=== PATIENT | male | born 2000 | race Caucasian/White ===

== ENCOUNTER 2018-06-24 22:17 | Emergency (ER) | payer BC ==
[~2018-06-24] VITALS: Ht 190.5 cm; Wt 104.3 kg
[2018-06-24] MEDS ORDERED: TIZA4TAB PO (22:40)
[2018-06-24] MEDS ORDERED: RANI150C PO (22:40)
[2018-06-24] MEDS ORDERED: ALPR2TAB2 PO (22:40)
[2018-06-24] MEDS ORDERED: CHOL2000 PO (22:40)
[2018-06-24] MEDS ORDERED: OMEP40CA5 PO (22:40)
--- NOTE | 2018-06-24 22:50 | PHYS DOC ---
Past Medical History Past Medical History: Anxiety Additional Past Medical Histor: PTSD Additional Past Surgical Histo: Fundal GI\surgery Alcohol Use: Occasionally Drug Use: Marijuana Adult General Chief Complaint Chief Complaint: ABDOMINAL PAIN HPI HPI Patient is a 18 year old M who is brought to ER peter by his mother for epigastric pain. Per pt he had his gallbladder removed in Mar of this year by Dr. Rea at [facility]. Shortly after surgery he started having this midline epigastric pain. He was re-admitted for concerns for a leak and had CT which did not show a leak and they were unsure what was causing all the discomfort. Since that time he has had intermittent pains that will last a few minutes and then let up. Tonight he states the pain came on and has not wanted to go away. He arrives moaning and rocking back and forth. Pt denied N/V but then during my exam sat up suddenly and asked for a bucket. He reports normal stools (loose since surgery). Pt does not feel eating brings on the pain. He states it just happens randomly. Review of Systems Review of Systems Constitutional: Denies fever or chills Respiratory: Denies cough or shortness of breath Cardiovascular: Denies chest pain GI: Reports abdominal/epigastric pain. Denies constipation, nausea or vomiting. Reports loose stools. : Denies dysuria or hematuria Musculoskeletal: Reports mid back pain. Integument: Denies rash or skin lesions Neurologic: Denies headache, focal weakness or sensory changes All other systems were reviewed and found to be within normal limits, except as documented in this note. Current Medications Current Medications Current Medications Medications (Trade) Dose Ordered Sig/Ugo Start Time Stop Time Status Last Admin Dose Admin Diphenhydramine HCl (Benadryl) 25 mg 1X ONCE 06/24/18 23:00 06/24/18 23:01 DC 06/24/18 23:22 25 MG Fentanyl Citrate (Fentanyl 2ml Vial) 50 mcg 1X ONCE 06/24/18 23:00 06/24/18 23:01 DC 06/24/18 23:23 50 MCG Metoclopramide HCl (Reglan Vial) 10 mg 1X ONCE 06/24/18 23:00 06/24/18 23:01 DC 06/24/18 23:21 10 MG Allergies Allergies Allergies Coded Allergies Type Severity Reaction Last Updated Verified No Known Drug Allergies 06/24/18 No Physical Exam Physical Exam Constitutional: Well developed, well nourished, non-toxic appearance. Appears uncomfortable. HENT: Normocephalic, atraumatic, oropharynx moist Eyes: PERRLA, EOMI Neck: Normal range of motion, no tenderness, supple, no stridor. Cardiovascular:Heart rate regular rhythm, no murmur Lungs & Thorax: Bilateral breath sounds clear to auscultation Abdomen: Bowel sounds normal, soft, no masses, no pulsatile masses. Epigastric pain with palpation. Skin: Warm, dry, no erythema, no rash. Back: No tenderness with palpation, no CVA tenderness. Extremities: No tenderness, no cyanosis, no clubbing, ROM intact, no edema. Neurologic: Alert and oriented X 3, normal motor function, normal sensory function, no focal deficits noted. Psychologic: Affect normal, judgement normal, mood normal. Current Patient Data Vital Signs Vital Signs Date Time Temp Pulse Resp B/P (MAP) Pulse Ox O2 Delivery O2 Flow Rate FiO2 06/25/18 00:05 70 16 97/54 (68) 94 Room Air 06/24/18 22:23 98.5 98.5 Lab Values Laboratory Tests Test 06/24/18 23:00 White Blood Count 6.0 x10^3/uL (4.0-11.0) Red Blood Count 5.49 x10^6/uL (4.30-5.70) Hemoglobin 15.1 g/dL (13.0-17.5) Hematocrit 44.3 % (39.0-53.0) Mean Corpuscular Volume 81 fL (79-100) Mean Corpuscular Hemoglobin 28 pg (25-35) Mean Corpuscular Hemoglobin Concent 34 g/dL (31-37) Red Cell Distribution Width 14.2 % (11.5-14.5) Platelet Count 221 x10^3/uL (140-400) Neutrophils (%) (Auto) 48 % (31-73) Lymphocytes (%) (Auto) 38 % (24-48) Monocytes (%) (Auto) 11 % (0-9) H Eosinophils (%) (Auto) 2 % (0-3) Basophils (%) (Auto) 1 % (0-3) Neutrophils # (Auto) 2.9 x10^3uL (1.8-7.7) Lymphocytes # (Auto) 2.3 x10^3/uL (1.0-4.8) Monocytes # (Auto) 0.7 x10^3/uL (0.0-1.1) Eosinophils # (Auto) 0.1 x10^3/uL (0.0-0.7) Basophils # (Auto) 0.1 x10^3/uL (0.0-0.2) Sodium Level 141 mmol/L (136-145) Potassium Level 3.6 mmol/L (3.5-5.1) Chloride Level 105 mmol/L (98-107) Carbon Dioxide Level 23 mmol/L (21-32) Anion Gap 13 (6-14) Blood Urea Nitrogen 12 mg/dL (8-26) Creatinine 1.2 mg/dL (0.7-1.3) Estimated GFR (Cockcroft-Gault) 77.2 BUN/Creatinine Ratio 10 (6-20) Glucose Level 92 mg/dL (70-99) Calcium Level 9.1 mg/dL (8.5-10.1) Total Bilirubin 1.1 mg/dL (0.2-1.0) H Aspartate Amino Transferase (AST) 41 U/L (15-37) H Alanine Aminotransferase (ALT) 35 U/L (16-63) Alkaline Phosphatase 89 U/L (46-116) Total Protein 7.4 g/dL (6.4-8.2) Albumin 3.9 g/dL (3.4-5.0) Albumin/Globulin Ratio 1.1 (1.0-1.7) Lipase 89 U/L (73-393) Laboratory Tests 06/24/18 23:00 Laboratory Tests 06/24/18 23:00 EKG EKG [] Radiology/Procedures Radiology/Procedures Ultrasound over read pending. Reports of normal sized CBD and no stones. Course & Med Decision Making Course & Med Decision Making Pertinent Labs and Imaging studies reviewed. (See chart for details) Pain greatly improved after pain medication. Ultrasound reassuring. Labs mostly normal with mild elevation of Bili and AST. Discussed with pt and mother that he should follow up closely with his surgeon and/or PCP. Pt to return if symptoms worsen at anytime. Dragon Disclaimer Dragon Disclaimer This electronic medical record was generated, in whole or in part, using a voice recognition dictation system. Departure Departure Impression: Primary Impression: Epigastric pain Disposition: HOME, SELF-CARE Condition: IMPROVED Patient Instructions: Abdominal Pain Additional Instructions: Your tests today were reassuring. They did not show any emergent conditions, but the cause of your pain is unclear. We recommend a very close follow up with your PCP or your surgeon. Call first thing tomorrow morning and return to ER if symptoms worsen at anytime. Scripts Ondansetron Hcl (ZOFRAN) 4 Mg Tablet 1 TAB PO Q6HRS PRN for NAUSEA/VOMITING, #12 TAB Prov: ANETTE RODRIGUEZ 06/25/18 Famotidine (PEPCID) 20 Mg Tablet 20 MG PO HS for 7 Days, #7 TAB Prov: ANETTE RODRIGUEZ 06/25/18 Hydrocodone/Apap 5-325 (NORCO 5-325 TABLET) 1 Each Tablet 1-2 TAB PO Q4-6HRS PRN for PAIN, #12 TAB Prov: ANETTE RODRIGUEZ 06/25/18 ANETTE RODRIGUEZ June 24, 2018 22:50
[2018-06-24] MEDS ORDERED: METOCLOPRAMIDE HCL 10 MG/2 ML VIAL. IV ONE (23:00)
[2018-06-24] MEDS ORDERED: diphenhydrAMINE 50 MG/ML VIAL IVP ONE (23:00)
[2018-06-24] MEDS ORDERED: fentaNYL PF VIAL 100 MCG/2 ML VIAL IV ONE (23:00)
[2018-06-24 23:10] LABS: BASO # 0.1 x10^3/uL (0.0-0.2); BASO % 1 % (0-3); EOS # 0.1 x10^3/uL (0.0-0.7); EOS % 2 % (0-3); HEMATOCRIT 44.3 % (39.0-53.0); HEMOGLOBIN 15.1 g/dL (13.0-17.5); LYMPH # 2.3 x10^3/uL (1.0-4.8); LYMPH % 38 % (24-48); MEAN CORPUSCULAR HEMOGLOBIN 28 pg (25-35); MEAN CORPUSCULAR HGB CONC 34 g/dL (31-37); MEAN CORPUSCULAR VOLUME 81 fL (79-100); MONO # 0.7 x10^3/uL (0.0-1.1); MONO % 11 % (0-9); NEUT # 2.9 x10^3uL (1.8-7.7); NEUT % 48 % (31-73); PLATELET COUNT 221 x10^3/uL (140-400); RED BLOOD COUNT 5.49 x10^6/uL (4.30-5.70); RED CELL DISTRIBUTION WIDTH 14.2 % (11.5-14.5)
[2018-06-24 23:18] LABS: CALCIUM 9.1 mg/dL (8.5-10.1); CREATININE 1.2 mg/dL (0.7-1.3); GFR 77.2; POTASSIUM 3.6 mmol/L (3.5-5.1)
[2018-06-24 23:26] LABS: ALBUMIN 3.9 g/dL (3.4-5.0); ALBUMIN/GLOBULIN RATIO 1.1 (1.0-1.7); TOTAL BILIRUBIN 1.1 mg/dL (0.2-1.0); TOTAL PROTEIN 7.4 g/dL (6.4-8.2)
[2018-06-25] MEDS ORDERED: FAMO-63 PO (00:31)
[2018-06-25] MEDS ORDERED: HYDR-3164 PO (00:31)
[2018-06-25] MEDS ORDERED: ONDA4TAB7 PO (00:31)
[2018-06-25] MEDS ORDERED: IV NORMAL SALINE 1000ML BAG 1,000 ML IV ONE (00:45)
[2018-06-25 01:22] VITALS: BP 100/54
--- NOTE | 2018-06-25 09:50 | RAD ---
Ultrasound the abdomen limited. HISTORY: Epigastric pain, prior cholecystectomy Ultrasound was used to evaluate the right upper quadrant of the abdomen. The head and proximal body of the pancreas appeared normal. The tail of pancreas is obscured. Liver is difficult to fully evaluate. A liver lesion was not identified. Common duct was normal measuring 5 mm. Right kidney is 10.1 cm in length without hydronephrosis. IMPRESSION: 1. Previous cholecystectomy. 2. Difficult evaluation due to bowel gas. 3. Normal common duct. Electronically signed by: Silvino Dos Santos MD (06/25/2018 12:40 AM) [id number]
== END 2018-06-25 01:23 | disposition home or self-care (01) ==
LOC: ER 22:17
DX: R10.13 Epigastric pain (principal); M54.6 Pain in thoracic spine; R19.7 Diarrhea, unspecified; F41.9 Anxiety disorder, unspecified
CPT/HCPCS: 36415; 76705; 80053; 83690; 85025; 96361; 96374; 96375; 99285; J1200; J2765; J3010; J7030

== ENCOUNTER 2018-06-29 16:08 | Emergency (ER) | payer BC ==
[~2018-06-29] VITALS: Ht 188 cm; Wt 99.8 kg
[~2018-06-29 16:08] MED LIST: ALPR2TAB2 PO; CHOL2000 PO; FAMO-63 PO; HYDR-3164 PO; OMEP40CA5 PO; ONDA4TAB7 PO; RANI150C PO; TIZA4TAB PO
[2018-06-29] MEDS ORDERED: IV NORMAL SALINE 1000ML BAG 1,000 ML IV SCH (16:24)
[2018-06-29] MEDS ORDERED: ONDANSETRON PF 4 MG/2 ML VIAL. IV ONE (16:30)
[2018-06-29] MEDS ORDERED: MORPHINE SULFATE 4 MG/ML VIAL. IV ONE (16:30)
--- NOTE | 2018-06-29 16:37 | PHYS DOC ---
Past Medical History Past Medical History: Anxiety Additional Past Medical Histor: PTSD Past Surgical History: Cholecystectomy Additional Past Surgical Histo: Fundal GI\surgery Additional Information: non smoker Alcohol Use: None Drug Use: None Adult General Chief Complaint Chief Complaint: ABDOMINAL PAIN HPI HPI Patient is a 18 year old male who presents with abdominal pain. He states he had his gallbladder taken out on March 28. Since that times he has been having abdominal pain in increasing severity. He states that he has spasms daily that have been increasing in quantity and severity. It started out after the surgery with 5-6 per day and now is 40-50 per days. Some are lasting up to 1 hour in length. Rates his pain as 7/10 and describes it as punching in the gut. Associated symptoms include nausea and vomiting. Has tried Tiazidine and Naproxen today. Also has had 3 Xanax. Review of Systems Review of Systems Constitutional: Denies fever or chills [] Eyes: Denies change in visual acuity, redness, or eye pain [] HENT: Denies nasal congestion or sore throat [] Respiratory: Denies cough or shortness of breath [] Cardiovascular: No additional information not addressed in HPI [] GI: Reports abdominal pain, nausea, vomiting, diarrhea (ongoing since surgery) Denies bloody stools. [] : Denies dysuria or hematuria [] Musculoskeletal: Denies back pain or joint pain [] Integument: Denies rash or skin lesions [] Neurologic: Denies headache, focal weakness or sensory changes [] Endocrine: Denies polyuria or polydipsia [] Complete systems were reviewed and found to be within normal limits, except as documented in this note. Current Medications Current Medications Current Medications Medications (Trade) Dose Ordered Sig/Ugo Start Time Stop Time Status Last Admin Dose Admin Dicyclomine HCl (Bentyl) 10 mg 1X ONCE 06/29/18 17:15 06/29/18 17:16 DC 06/29/18 17:05 10 MG Diphenhydramine HCl (Benadryl) 25 mg 1X ONCE 06/29/18 18:00 06/29/18 18:01 DC 06/29/18 17:51 25 MG Fentanyl Citrate (Fentanyl 2ml Vial) 75 mcg 1X ONCE 06/29/18 18:00 06/29/18 18:01 DC 06/29/18 17:51 75 MCG Info (CONTRAST GIVEN -- Rx MONITORING) 1 each PRN DAILY PRN 06/29/18 17:00 07/01/18 16:59 Iohexol (Omnipaque 300 Mg/ml) 75 ml 1X ONCE 06/29/18 17:00 06/29/18 17:01 DC 06/29/18 17:30 75 ML Morphine Sulfate (Morphine Sulfate) 4 mg 1X ONCE 06/29/18 16:30 06/29/18 16:31 DC 06/29/18 16:37 4 MG Ondansetron HCl (Zofran) 4 mg 1X ONCE 06/29/18 16:30 06/29/18 16:31 DC 06/29/18 16:38 4 MG Sodium Chloride 1,000 ml @ 1,000 mls/hr Q1H 06/29/18 16:24 06/29/18 17:23 DC 06/29/18 16:38 1,000 MLS/HR Allergies Allergies Allergies Coded Allergies Type Severity Reaction Last Updated Verified No Known Drug Allergies 06/24/18 No Physical Exam Physical Exam Constitutional: Well developed, well nourished, no acute distress, non-toxic appearance. [] HENT: Normocephalic, atraumatic, bilateral external ears normal, oropharynx mo ist, no oral exudates, nose normal. [] Eyes: PERRLA, EOMI, conjunctiva normal, no discharge. [] Neck: Normal range of motion, no tenderness, supple, no stridor. [] Cardiovascular:Heart rate regular rhythm, no murmur [] Lungs & Thorax: Bilateral breath sounds clear to auscultation [] Abdomen: Bowel sounds normal, soft, diffuse tenderness, no masses, no pulsatile masses. [] Skin: Warm, dry, no erythema, no rash. [] Back: No tenderness, no CVA tenderness. [] Extremities: No tenderness, no cyanosis, no clubbing, ROM intact, no edema. [] Neurologic: Alert and oriented X 3, normal motor function, normal sensory function, no focal deficits noted. [] Psychologic: Affect anxious, judgement normal Current Patient Data Vital Signs Vital Signs Date Time Temp Pulse Resp B/P (MAP) Pulse Ox O2 Delivery O2 Flow Rate FiO2 06/29/18 18:00 66 18 121/77 (92) 96 Room Air 5/25/19 16:16 98.6 98.6 Lab Values Laboratory Tests Test 06/29/18 16:20 06/29/18 17:45 White Blood Count 5.5 x10^3/uL (4.0-11.0) Red Blood Count 5.63 x10^6/uL (4.30-5.70) Hemoglobin 15.7 g/dL (13.0-17.5) Hematocrit 45.9 % (39.0-53.0) Mean Corpuscular Volume 82 fL (79-100) Mean Corpuscular Hemoglobin 28 pg (25-35) Mean Corpuscular Hemoglobin Concent 34 g/dL (31-37) Red Cell Distribution Width 14.5 % (11.5-14.5) Platelet Count 222 x10^3/uL (140-400) Neutrophils (%) (Auto) 53 % (31-73) Lymphocytes (%) (Auto) 36 % (24-48) Monocytes (%) (Auto) 9 % (0-9) Eosinophils (%) (Auto) 2 % (0-3) Basophils (%) (Auto) 1 % (0-3) Neutrophils # (Auto) 2.9 x10^3uL (1.8-7.7) Lymphocytes # (Auto) 2.0 x10^3/uL (1.0-4.8) Monocytes # (Auto) 0.5 x10^3/uL (0.0-1.1) Eosinophils # (Auto) 0.1 x10^3/uL (0.0-0.7) Basophils # (Auto) 0.1 x10^3/uL (0.0-0.2) Sodium Level 141 mmol/L (136-145) Potassium Level 3.8 mmol/L (3.5-5.1) Chloride Level 105 mmol/L (98-107) Carbon Dioxide Level 26 mmol/L (21-32) Anion Gap 10 (6-14) Blood Urea Nitrogen 11 mg/dL (8-26) Creatinine 1.1 mg/dL (0.7-1.3) Estimated GFR (Cockcroft-Gault) 85.3 BUN/Creatinine Ratio 10 (6-20) Glucose Level 95 mg/dL (70-99) Calcium Level 9.1 mg/dL (8.5-10.1) Total Bilirubin 0.6 mg/dL (0.2-1.0) Aspartate Amino Transferase (AST) 24 U/L (15-37) Alanine Aminotransferase (ALT) 32 U/L (16-63) Alkaline Phosphatase 99 U/L (46-116) Total Protein 7.7 g/dL (6.4-8.2) Albumin 4.3 g/dL (3.4-5.0) Albumin/Globulin Ratio 1.3 (1.0-1.7) Lipase 91 U/L (73-393) Urine Collection Type Unknown Urine Color Yellow Urine Clarity Clear Urine pH 7.0 Urine Specific [place] 1.010 Urine Protein Negative mg/dL (NEG-TRACE) Urine Glucose (UA) Negative mg/dL (NEG) Urine Ketones (Stick) Negative mg/dL (NEG) Urine Blood Negative (NEG) Urine Nitrite Negative (NEG) Urine Bilirubin Negative (NEG) Urine Urobilinogen Dipstick 0.2 mg/dL (0.2 mg/dL) Urine Leukocyte Esterase Negative (NEG) Urine RBC Occ /HPF (0-2) Urine WBC 0 /HPF (0-4) Urine Bacteria 0 /HPF (0-FEW) Laboratory Tests 06/29/18 16:20 Laboratory Tests 06/29/18 16:20 EKG EKG [] Radiology/Procedures Radiology/Procedures []PATIENT: BERENICE COOPEROUNT: [id number]#: [id number] : 2000 LOCATION: ER AGE: 18 SEX: M EXAM STATUS: REG ER ORD. PHYSICIAN: SILVIA LEZAMA APRN REASON: abd pain PROCEDURE: CT ABD PELV W/ IV CONTRST ONLY CT scan abdomen and pelvis with contrast 06/29/2018 CLINICAL HISTORY: Abdominal pain. TECHNIQUE: After the intravenous administration of 75 cc of Omnipaque 300, contiguous, 5 mm axial sections were obtained through the abdomen and pelvis. One or more of the following individualized dose reduction techniques were utilized for this study: 1. Automated exposure control. 2. Adjustment of the mA and/or kV according to patient size. 3. Use of iterative reconstruction technique. FINDINGS: Comparison is made to a CT scan of the abdomen and pelvis dated 04/10/2018. This performed at [facility]. Images through the lung bases demonstrate minimal dependent subsegmental atelectasis bilaterally. The liver, spleen, pancreas, adrenal glands and kidneys are within normal limits. The abdominal aorta tapers normally. The gallbladder is not visualized consistent with a cholecystectomy. No free fluid or free air is seen within the abdomen. There is no evidence of bowel obstruction. The appendix is well-visualized and is within normal limits. Images through the pelvis demonstrate the urinary bladder distended with urine. No free fluid is seen. Minimal S-shaped curvature of the thoracolumbar spine is noted. IMPRESSION: No acute abnormality is seen. Electronically signed by: Singh Conklin MD (06/29/2018 5:41 PM) [facility] Course & Med Decision Making Course & Med Decision Making Pertinent Labs and Imaging studies reviewed. (See chart for details) Will order labs, CT scan, and supportive medication. Patient is agreeable. Imaging and labs are unremarkable. Will d/c to follow up with general surgery. Dragon Disclaimer Dragon Disclaimer This electronic medical record was generated, in whole or in part, using a voice recognition dictation system. Departure Departure Impression: Primary Impression: Abdominal pain Disposition: 01 HOME, SELF-CARE Condition: STABLE Referrals: NO PCP (PCP) Patient Instructions: Abdominal Pain (Nonspecific) Additional Instructions: Please follow up with general surgery this coming week for further workup. Return to ER if symptoms worsen. Problem Qualifiers Primary Impression: Abdominal pain Abdominal location: unspecified location Qualified Codes: R10.9 - Unspecified abdominal pain SILVIA LEZAMA APRN June 29, 2018 16:37
[2018-06-29 16:38] LABS: BASO # 0.1 x10^3/uL (0.0-0.2); BASO % 1 % (0-3); EOS # 0.1 x10^3/uL (0.0-0.7); EOS % 2 % (0-3); HEMATOCRIT 45.9 % (39.0-53.0); HEMOGLOBIN 15.7 g/dL (13.0-17.5); LYMPH % 36 % (24-48); MEAN CORPUSCULAR HEMOGLOBIN 28 pg (25-35); MEAN CORPUSCULAR HGB CONC 34 g/dL (31-37); MEAN CORPUSCULAR VOLUME 82 fL (79-100); MONO # 0.5 x10^3/uL (0.0-1.1); MONO % 9 % (0-9); NEUT # 2.9 x10^3uL (1.8-7.7); NEUT % 53 % (31-73); PLATELET COUNT 222 x10^3/uL (140-400); RED BLOOD COUNT 5.63 x10^6/uL (4.30-5.70); RED CELL DISTRIBUTION WIDTH 14.5 % (11.5-14.5); WHITE BLOOD COUNT 5.5 x10^3/uL (4.0-11.0)
[2018-06-29 16:47] LABS: CALCIUM 9.1 mg/dL (8.5-10.1); CREATININE 1.1 mg/dL (0.7-1.3); GFR 85.3; POTASSIUM 3.8 mmol/L (3.5-5.1)
[2018-06-29 16:52] LABS: ALBUMIN 4.3 g/dL (3.4-5.0); ALBUMIN/GLOBULIN RATIO 1.3 (1.0-1.7); TOTAL BILIRUBIN 0.6 mg/dL (0.2-1.0); TOTAL PROTEIN 7.7 g/dL (6.4-8.2)
[2018-06-29] MEDS ORDERED: CONTRAST GIVEN. MC PRN (17:00)
[2018-06-29] MEDS ORDERED: IOHEXOL 300 MG/ML 100ML VIAL. IV ONE (17:00)
[2018-06-29] MEDS ORDERED: DICYCLOMINE 20 MG/2 ML AMPUL. IM ONE (17:15)
--- NOTE | 2018-06-29 17:44 | RAD ---
CT scan abdomen and pelvis with contrast 06/29/2018 CLINICAL HISTORY: Abdominal pain. TECHNIQUE: After the intravenous administration of 75 cc of Omnipaque 300, contiguous, 5 mm axial sections were obtained through the abdomen and pelvis. One or more of the following individualized dose reduction techniques were utilized for this study: 1. Automated exposure control. 2. Adjustment of the mA and/or kV according to patient size. 3. Use of iterative reconstruction technique. FINDINGS: Comparison is made to a CT scan of the abdomen and pelvis dated 04/10/2018. This performed at [facility]. Images through the lung bases demonstrate minimal dependent subsegmental atelectasis bilaterally. The liver, spleen, pancreas, adrenal glands and kidneys are within normal limits. The abdominal aorta tapers normally. The gallbladder is not visualized consistent with a cholecystectomy. No free fluid or free air is seen within the abdomen. There is no evidence of bowel obstruction. The appendix is well-visualized and is within normal limits. Images through the pelvis demonstrate the urinary bladder distended with urine. No free fluid is seen. Minimal S-shaped curvature of the thoracolumbar spine is noted. IMPRESSION: No acute abnormality is seen. Electronically signed by: Singh Conklin MD (06/29/2018 5:41 PM) [facility]
[2018-06-29 17:53] LABS: BILIRUBIN,URINE NEGATIVE (NEG); CLARITY,URINE CLEAR; COLOR,URINE YELLOW; NITRITE,URINE NEGATIVE (NEG); PROTEIN,URINE NEGATIVE (NEG-TRACE); UROBILINOGEN,URINE 0.2 mg/dL (0.2 mg/dL)
[2018-06-29] MEDS ORDERED: fentaNYL PF VIAL 100 MCG/2 ML VIAL IV ONE ×2 (18:00→20:00)
[2018-06-29] MEDS ORDERED: diphenhydrAMINE 50 MG/ML VIAL IVP ONE (18:00)
[2018-06-29 18:13] LABS: BACTERIA,URINE 0 /HPF (0-FEW); RBC,URINE OCC /HPF (0-2); WBC,URINE 0 /HPF (0-4)
[2018-06-29 19:00] VITALS: BP 122/75
== END 2018-06-29 19:41 | disposition home or self-care (01) ==
LOC: ER 16:08
DX: R10.84 Generalized abdominal pain (principal); R11.2 Nausea with vomiting, unspecified; R19.7 Diarrhea, unspecified; F41.9 Anxiety disorder, unspecified; Z90.49 Acquired absence of other specified parts of digestive tract
CPT/HCPCS: 36415; 74177; 80053; 81001; 83690; 85025; 96361; 96372; 96374; 96375; 96376; 99285; J0500; J1200; J2270; J2405; J3010; J7030; Q9967

== ENCOUNTER 2019-01-07 09:01 | Emergency (ER) | payer BC ==
[~2019-01-07] VITALS: Ht 190.5 cm; Wt 120.2 kg
[~2019-01-07 09:01] MED LIST changes: +OMEP40CA45 PO; -OMEP40CA5 PO; -TIZA4TAB PO; +TIZA4TAB2 PO
[2019-01-07 09:05] VITALS: BP 138/79
[2019-01-07] MEDS ORDERED: ORPHENADRINE CITRATE 60 MG/2 ML VIAL. IM STA (09:13)
[2019-01-07] MEDS ORDERED: fentaNYL PF VIAL 100 MCG/2 ML VIAL IM STA (09:13)
--- NOTE | 2019-01-07 09:19 | PHYS DOC ---
Past Medical History Past Medical History: Anxiety Additional Past Medical Histor: PTSD Past Surgical History: Cholecystectomy Additional Past Surgical Histo: Fundal GI\surgery Alcohol Use: None Drug Use: None Adult General Chief Complaint Chief Complaint: MECHANICAL FALL HPI HPI Patient is a 18 year old male who presents with with a fall. The patient states on Sunday a dog leash wrapped around his ankle because in the fall and hit some stairs. He then fell again this morning when he tripped. He is having lower back pain. He rates his pain as 8 out of 10 in severity. No other complaints. Review of Systems Review of Systems Constitutional: Denies fever or chills [] Eyes: Denies change in visual acuity, redness, or eye pain [] HENT: Denies nasal congestion or sore throat [] Respiratory: Denies cough or shortness of breath [] Cardiovascular: No additional information not addressed in HPI [] GI: Denies abdominal pain, nausea, vomiting, bloody stools or diarrhea [] : Denies dysuria or hematuria [] Musculoskeletal: Reports back pain. Integument: Denies rash or skin lesions [] Neurologic: Denies headache, focal weakness or sensory changes [] Endocrine: Denies polyuria or polydipsia [] Complete systems were reviewed and found to be within normal limits, except as documented in this note. Current Medications Current Medications Current Medications Medications (Trade) Dose Ordered Sig/Ugo Start Time Stop Time Status Last Admin Dose Admin Fentanyl Citrate (Fentanyl 2ml Vial) 100 mcg 1X STAT 01/07/19 09:13 01/07/19 09:17 DC 01/07/19 09:41 100 MCG Orphenadrine Citrate (Norflex) 60 mg 1X STAT 01/07/19 09:13 01/07/19 09:17 DC 01/07/19 09:41 60 MG Allergies Allergies Allergies Coded Allergies Type Severity Reaction Last Updated Verified No Known Drug Allergies 01/07/19 No Physical Exam Physical Exam Constitutional: Well developed, well nourished, no acute distress, non-toxic appearance. [] HENT: Normocephalic, atraumatic, bilateral external ears normal, oropharynx moist, no oral exudates, nose normal. [] Eyes: PERRLA, EOMI, conjunctiva normal, no discharge. [] Neck: Normal range of motion, no tenderness, supple, no stridor. [] Abdomen: Soft, no tenderness, no masses, no pulsatile masses. [] Skin: Warm, dry, no erythema, no rash. [] Back: thoracic and lumbar tenderness. No step offs. Extremities: No tenderness, no cyanosis, no clubbing, ROM intact, no edema. [] Neurologic: Alert and oriented X 3, normal motor function, normal sensory function, no focal deficits noted. [] Psychologic: Affect normal, judgement normal, mood normal. [] Current Patient Data Vital Signs Vital Signs Date Time Temp Pulse Resp B/P (MAP) Pulse Ox O2 Delivery O2 Flow Rate FiO2 01/07/19 09:41 16 96 Room Air 01/07/19 09:05 97.7 88 138/79 (98) 97.7 EKG EKG [] Radiology/Procedures Radiology/Procedures [][facility] [address] [place] [address] IMAGING REPORT Signed PATIENT: JANET COOPER ACCOUNT: [id number] : 2000 LOCATION: ER AGE: 18 SEX: M EXAM STATUS: REG ER ORD. PHYSICIAN: TOMMIE LEZAMA APRN REASON: Fall few days ago, back pain PROCEDURE: CT LUMBAR SPINE WO CONTRAST CT LUMBAR SPINE WO CONTRAST, CT THORACIC SPINE WO CONTRAST dated 01/07/2019 9:13 AM Indication: Pain. Pain after fall... Comparison: No comparison is available. Technique: Contiguous axial imaging of the thoracic and lumbar spine performed with thin cut coronal and sagittal reconstruction. One or more of the following individualized dose reduction techniques were utilized for this examination: 1. Automated exposure control 2. Adjustment of the mA and/or kV according to patient size 3. Use of iterative reconstruction technique Findings: Sagittal alignment is anatomic. Vertebral body heights are maintained. Posterior elements are intact. No evidence of fracture. No significant endplate hypertrophic changes of the thoracic spine.. No significant facet arthropathy. No apparent focal disc herniation. The bony canal and foramina are adequate. L4-L5, there is mild broad-based posterior disc osteophyte complex with slight retrolisthesis post small central protrusion. This examination is mild facet arthropathy and ligamentum flavum hypertrophy and prominent posterior epidural fat results in mild to moderate central stenosis. This also mild narrowing of the bilateral foramen at this level. At L5-S1, mild broad-based bulge with mild disc space narrowing and mild facet arthropathy. The central canal is mildly narrowed. Foramen are adequate. Imaged portions the pulmonary parenchyma unremarkable. There is minimal linear scar or atelectasis at the left base. Images of the retroperitoneum show no significant abnormality. IMPRESSION: 1. No evidence of fracture or malalignment of the thoracic and lumbar spine. 2. Mild to moderate lower lumbar spondylosis with resultant mild to moderate central stenosis at L4-L5 and mild central canal narrowing at L5-S1. Please see above report for details. Electronically signed by: Tommie Mi MD (01/07/2019 9:55 AM) [id number] DICTATED and SIGNED BY: TOMMIE MI MD DATE: 01/07/19 0955 Course & Med Decision Making Course & Med Decision Making Pertinent Labs and Imaging studies reviewed. (See chart for details) Will get CT scan of Thoracic and Lumbar spine. Will give supportive care. Imaging is negative. Will d/c home with a script for Norflex and to follow up with primary care provider. Dragkaela Disclaimer Dragon Disclaimer This electronic medical record was generated, in whole or in part, using a voice recognition dictation system. Departure Departure Impression: Primary Impression: Fall Additional Impression: Back pain Disposition: 01 HOME, SELF-CARE Condition: STABLE Referrals: UNKNOWN PCP NAME (PCP) Patient Instructions: Musculoskeletal Pain Additional Instructions: Thank you for visiting [facility]. We appreciate you trusting us with your care. If any additional problems come up don't hesitate to return to visit us. Please follow up with your primary care provider so they can plan additional care if needed and know about the problem that you had. If symptoms worsen come back to the Emergency Department. Any concerning symptoms that start such as chest pain, shortness of air, weakness or numbness on one side of the body, running high fevers or any other concerning symptoms return to the ER. Please fill your medications at any pharmacy and follow the prescription instructions. Scripts Orphenadrine Citrate (ORPHENADRINE CITRATE) 100 Mg Tablet.er 100 MG PO BID PRN for MUSCLE PAIN for 5 Days, #10 TAB.SR Please be aware that this medication will make you drowsy. Please do not drive or operate machinery on this medication. Prov: TOMMIE LEZAMA APRN 01/07/19 Problem Qualifiers Primary Impression: Fall Encounter type: initial encounter Qualified Codes: W19.XXXA - Unspecified fall, initial encounter Additional Impression: Back pain Back pain location: low back pain Chronicity: acute Back pain laterality: midline Sciatica presence: without sciatica Qualified Codes: M54.5 - Low back pain TOMMIE LEZAMA APRN Jan 07, 2019 09:19
--- NOTE | 2019-01-07 09:58 | RAD ---
CT LUMBAR SPINE WO CONTRAST, CT THORACIC SPINE WO CONTRAST dated 01/07/2019 9:13 AM Indication: Pain. Pain after fall... Comparison: No comparison is available. Technique: Contiguous axial imaging of the thoracic and lumbar spine performed with thin cut coronal and sagittal reconstruction. One or more of the following individualized dose reduction techniques were utilized for this examination: 1. Automated exposure control 2. Adjustment of the mA and/or kV according to patient size 3. Use of iterative reconstruction technique Findings: Sagittal alignment is anatomic. Vertebral body heights are maintained. Posterior elements are intact. No evidence of fracture. No significant endplate hypertrophic changes of the thoracic spine.. No significant facet arthropathy. No apparent focal disc herniation. The bony canal and foramina are adequate. L4-L5, there is mild broad-based posterior disc osteophyte complex with slight retrolisthesis post small central protrusion. This examination is mild facet arthropathy and ligamentum flavum hypertrophy and prominent posterior epidural fat results in mild to moderate central stenosis. This also mild narrowing of the bilateral foramen at this level. At L5-S1, mild broad-based bulge with mild disc space narrowing and mild facet arthropathy. The central canal is mildly narrowed. Foramen are adequate. Imaged portions the pulmonary parenchyma unremarkable. There is minimal linear scar or atelectasis at the left base. Images of the retroperitoneum show no significant abnormality. IMPRESSION: 1. No evidence of fracture or malalignment of the thoracic and lumbar spine. 2. Mild to moderate lower lumbar spondylosis with resultant mild to moderate central stenosis at L4-L5 and mild central canal narrowing at L5-S1. Please see above report for details. Electronically signed by: Tommie Mi MD (01/07/2019 9:55 AM) [id number]
[2019-01-07] MEDS ORDERED: ORPH100T PO (10:08)
== END 2019-01-07 10:15 | disposition home or self-care (01) ==
LOC: ER 09:01
DX: M54.5 Low back pain (principal); G89.11 Acute pain due to trauma; F41.9 Anxiety disorder, unspecified; Z90.49 Acquired absence of other specified parts of digestive tract; W01.0XXA Fall on same level from slipping, tripping and stumbling without subsequent striking against object, initial encounter; Y93.89 Activity, other specified; Y92.89 Other specified places as the place of occurrence of the external cause; Y99.8 Other external cause status
CPT/HCPCS: 72128; 72131; 96372; 99284; J2360; J3010